=== PATIENT | male | born 1990 | race Two or more races ===

== ENCOUNTER → 2024-04-19 | Outpatient (CLI) | payer BC ==
--- NOTE | 2024-04-19 17:31 | US ---
EXAMINATION TYPE: US scrotum with doppler. Grayscale and color Doppler Duplex imaging performed of jm weiss scrotum. DATE OF EXAM: 04/19/2024 COMPARISON: NONE CLINICAL INDICATION: Male, 33 years old with history of N50.9 DISORDER OF MALE GENITAL ORGANS, UNSPEC IFIED; lump left side. EXAM MEASUREMENTS: TESTICLES: Right Testicle: 3.1 x 1.8 x 2.0 cm Left Testicle: 3.3 x 1.8 x 2.7 cm EPIDIDYMIS HEAD: Right Epididymis: .5 x 1.0 x .7 cm Left Epididymis: .8 x .6 x .8 cm Doppler performed to assess for testicular vascularity; good bilateral color flow and waveforms are s een. There is no evidence of testicular torsion. Presence of hydroceles: no Presence of varicoceles: no IMPRESSION: No discrete abnormality seen.
== END | disposition home or self-care (01) ==
LOC: RADUSWWP 16:11
PROVIDERS: ATTEND Family Medicine
DX: N50.9 Disorder of male genital organs, unspecified (principal)
CPT/HCPCS: 76870; 93975